=== PATIENT | male | born 1990 | race Two or more races ===

== ENCOUNTER 2020-05-30 08:19 | Emergency (ER) | payer SELFPAY ==
[2020-05-30] MEDS ORDERED: NYSTATIN/DEXAMETH/DIPHEN SUSP 120 ML PO ONE (10:25)
[2020-05-30 10:29] LABS: ABSOLUTE EOSINOPHILS # (AUTO) 0.1 10^3/uL (0.0-0.6); ABSOLUTE LYMPHOCYTES (AUTO) 1.8 10^3/uL (0.5-4.7); ABSOLUTE MONOCYTES (AUTO) 0.4 10^3/uL (0.1-1.4); ABSOLUTE NEUT (AUTO) 3.9 10^3/uL (1.7-8.2); BASOPHILS % (AUTO) 0.7 % (0-2); EOSINOPHILS % (AUTO) 1.3 % (0-6); HEMATOCRIT 48.9 % (37.9-51.0); HEMOGLOBIN 17.1 g/dL (13.5-17.0); LYMPHOCYTES % (AUTO) 29.1 % (13-45); MEAN CORPUSCULAR HEMOGLOBIN 30.2 pg (27.0-33.4); MEAN CORPUSCULAR HGB CONC 34.9 g/dL (32.0-36.0); MEAN CORPUSCULAR VOLUME 87 fl (80-97); PLATELET COUNT 288 10^3/uL (150-450); RED BLOOD COUNT 5.65 10^6/uL (4.35-5.55); RED CELL DISTRIBUTION WIDTH 13.3 % (11.5-14.0); SEGMENTED NEUTROPHILS % (AUTO) 62.9 % (42-78); TOTAL CELLS COUNTED % (AUTO) 100 %; WHITE BLOOD COUNT 6.1 10^3/uL (4.0-10.5)
[2020-05-30 10:47] LABS: ALBUMIN 4.9 g/dL (3.5-5.0); ALKALINE PHOSPHATASE 80 U/L (38-126); ANION GAP 8 (5-19); ASPARTATE AMINO TRANSFERASE 22 U/L (17-59); BILIRUBIN,DIRECT 0.2 mg/dL (0.0-0.4); BILIRUBIN,TOTAL 1.1 mg/dL (0.2-1.3); BLOOD UREA NITROGEN 15 mg/dL (7-20); CALCIUM 10.1 mg/dL (8.4-10.2); CARBON DIOXIDE 28 mmol/L (22-30); CHLORIDE 103 mmol/L (98-107); GLUCOSE 106 mg/dL (75-110); POTASSIUM 4.2 mmol/L (3.6-5.0); TOTAL PROTEIN 7.8 g/dL (6.3-8.2)
--- NOTE | 2020-05-30 11:29 | ER Document Report ---
ED ENT - General Chief Complaint: Sore Throat Stated Complaint: SORE THROAT Time Seen by Provider: 05/30/20 09:39 Mode of Arrival: Ambulatory Information source: Patient Notes: Used ophthalmic lens inspector by Meghan HILL Notes: Patient presents with 2 months of mouth pain. He states over the last 2 to 3 days he has had progressive mouth pain where it hurts to eat and drink. He states a burning sensation. It is moderate in intensity. It is worse with eating or drinking and better when he does not. It does radiate throughout his mouth. He states he also has some tooth pain and cavities but this appears to be a different pain. Patient denies any fever or chills. He denies any significant vomiting or diarrhea. - Related Data Allergies/Adverse Reactions: No Known Allergies Allergy (Unverified 05/30/20 10:13) Past Medical History - General Information source: Patient - Social History Smoking Status: Never Smoker Frequency of alcohol use: None Drug Abuse: None Family History: Reviewed & Not Pertinent Review of Systems - Review of Systems Constitutional: denies: Chills, Fever Cardiovascular: denies: Chest pain, Palpitations Respiratory: denies: Cough, Short of breath -: Yes All other systems reviewed and negative Physical Exam - Vital signs Vitals: Temp Pulse Resp BP Pulse Ox 98.7 F 72 16 122/62 100 05/30/20 09:21 05/30/20 09:21 05/30/20 09:21 05/30/20 09:21 05/30/20 09:21 Interpretation: Normal - General General appearance: Appears well, Alert - HEENT Head: Normocephalic, Atraumatic Eyes: Normal Pupils: PERRL Mouth/Lips: Caries - Patient has poor dentition with numerous dental caries. He also has evidence of gingivitis., Other Mucous membranes: Moist Pharynx: Erythema. No: Exudate - Respiratory Respiratory status: No respiratory distress Chest status: Nontender Breath sounds: Normal Chest palpation: Normal - Cardiovascular Rhythm: Regular Heart sounds: Normal auscultation Murmur: No - Abdominal Inspection: Normal Distension: No distension Bowel sounds: Normal Tenderness: Nontender Organomegaly: No organomegaly - Back Back: Normal, Nontender - Extremities General upper extremity: Normal inspection, Nontender, Normal color, Normal ROM, Normal temperature General lower extremity: Normal inspection, Nontender, Normal color, Normal ROM, Normal temperature, Normal weight bearing. No: Abbey's sign - Neurological Neuro grossly intact: Yes Cognition: Normal Orientation: AAOx4 [place] Coma Scale Eye Opening: Spontaneous [place] Coma Scale Verbal: Oriented Werner Coma Scale Motor: Obeys Commands Werner Coma Scale Total: 15 Speech: Normal Motor strength normal: LUE, RUE, LLE, RLE Sensory: Normal - Psychological Associated symptoms: Normal affect, Normal mood - Skin Skin Temperature: Warm Skin Moisture: Dry Skin Color: Normal Course - Vital Signs Vital signs: Temp Pulse Resp BP Pulse Ox 98.7 F 72 16 122/62 100 05/30/20 09:21 05/30/20 09:21 05/30/20 09:21 05/30/20 09:21 05/30/20 09:21 - Laboratory Result Diagrams: 05/30/20 10:11 05/30/20 10:11 Laboratory results interpreted by me: 05/30/20 10:11 RBC 5.65 H Hgb 17.1 H Discharge - Discharge Clinical Impression: Gingivitis, Dental caries Pharyngitis Qualifiers: Pharyngitis/tonsillitis etiology: unspecified etiology Qualified Code(s): J02.9 - Acute pharyngitis, unspecified Condition: Stable Disposition: HOME, SELF-CARE Instructions: Penicillin V K ([facility]), Sore Throat ([facility]) Additional Instructions: Please see a dentist as soon as possible Prescriptions: Penicillin V Potassium [Penicillin Vk 500 mg Tablet] 500 mg PO QID 10 Days #40 tablet Forms: Return to Work Referrals: [facility] [Provider Group] - Follow up in 3-5 days Print Language: Lao
[2020-05-30 11:47] VITALS: BP 118/62
== END 2020-05-30 11:44 | disposition home or self-care (01) ==
LOC: ER 08:19
DX: K05.10 Chronic gingivitis, plaque induced (principal); K02.9 Dental caries, unspecified; J02.9 Acute pharyngitis, unspecified; K08.89 Other specified disorders of teeth and supporting structures
CPT/HCPCS: 99283; 36415; 87070; 87880; 85025; 80053; J3490

== ENCOUNTER 2020-08-02 07:09 | Emergency (ER) | payer SELFPAY ==
[2020-08-02 07:15] VITALS: BP 127/79
[2020-08-02 09:55] LABS: ABSOLUTE EOSINOPHILS # (AUTO) 0.1 10^3/uL (0.0-0.6); ABSOLUTE LYMPHOCYTES (AUTO) 2.1 10^3/uL (0.5-4.7); ABSOLUTE MONOCYTES (AUTO) 0.5 10^3/uL (0.1-1.4); ABSOLUTE NEUT (AUTO) 2.7 10^3/uL (1.7-8.2); BASOPHILS % (AUTO) 0.9 % (0-2); EOSINOPHILS % (AUTO) 2.2 % (0-6); HEMATOCRIT 46.9 % (37.9-51.0); HEMOGLOBIN 16.2 g/dL (13.5-17.0); LYMPHOCYTES % (AUTO) 38.5 % (13-45); MEAN CORPUSCULAR HEMOGLOBIN 30.2 pg (27.0-33.4); MEAN CORPUSCULAR HGB CONC 34.5 g/dL (32.0-36.0); MEAN CORPUSCULAR VOLUME 88 fl (80-97); MONOCYTES % (AUTO) 8.6 % (3-13); PLATELET COUNT 315 10^3/uL (150-450); RED BLOOD COUNT 5.36 10^6/uL (4.35-5.55); RED CELL DISTRIBUTION WIDTH 13.2 % (11.5-14.0); SEGMENTED NEUTROPHILS % (AUTO) 49.8 % (42-78); TOTAL CELLS COUNTED % (AUTO) 100 %; WHITE BLOOD COUNT 5.4 10^3/uL (4.0-10.5)
[2020-08-02 09:57] LABS: APPEARANCE,URINE CLEAR; BILIRUBIN,URINE NEGATIVE (NEGATIVE); COLOR,URINE STRAW; GLUCOSE, URINE NEGATIVE (NEGATIVE); KETONES,URINE NEGATIVE (NEGATIVE); LEUKOCYTE ESTERASE,URINE NEGATIVE (NEGATIVE); NITRITE,URINE NEGATIVE (NEGATIVE); PROTEIN,URINE NEGATIVE (NEGATIVE); URINE SPECIFIC GRAVITY 1.011; UROBILINOGEN,URINE NEGATIVE mg/dL (<2.0)
[2020-08-02 10:21] LABS: ALBUMIN 4.9 g/dL (3.5-5.0); ALKALINE PHOSPHATASE 76 U/L (38-126); ANION GAP 11 (5-19); ASPARTATE AMINO TRANSFERASE 25 U/L (17-59); BILIRUBIN,DIRECT 0.1 mg/dL (0.0-0.4); BILIRUBIN,TOTAL 0.6 mg/dL (0.2-1.3); BLOOD UREA NITROGEN 14 mg/dL (7-20); CALCIUM 10.1 mg/dL (8.4-10.2); CARBON DIOXIDE 28 mmol/L (22-30); CHLORIDE 101 mmol/L (98-107); GLUCOSE 103 mg/dL (75-110); POTASSIUM 4.6 mmol/L (3.6-5.0); TOTAL PROTEIN 8.1 g/dL (6.3-8.2)
[2020-08-02] MEDS ORDERED: METOCLOPRAMIDE HCL ORAL SOLN 10 MG/10 ML UDCUP PO ONE (10:30)
[2020-08-02] MEDS ORDERED: MAG HYDROX/AL HYDROX/SIMETH SUSP 30 ML UDCUP PO ONE (10:30)
[2020-08-02] MEDS ORDERED: LIDOCAINE 2% VISCOUS SOLN 15 ML UDCUP PO ONE (10:30)
--- NOTE | 2020-08-02 10:30 | ER Document Report ---
ED ENT - General Chief Complaint: Sore Throat Stated Complaint: SORE THROAT/ABDOMINAL PAIN/HEADACHE Time Seen by Provider: 08/02/20 10:16 Notes: CHIEF COMPLAINT: Mouth pain, throat pain for months HPI: 29-year-old male presenting for mouth pain and throat pain with a burning sensation that has been ongoing for months. History is obtained from the patient utilizing a spinneret cleaner computer. Chart was also reviewed. Patient states he has had painful tongue, burning sensation in the throat for 2 to 3 months. States that he was seen here 2 months ago for same complaint of the medications he received did help while he was taking them. He indicates he never followed up with the clinic he was referred to. States he has intermittent left-sided abdominal discomfort but has no abdominal pain at this time. Denies change in the discomfort in the throat with eating or drinking. States the throat hurts all the time. He has taken no gnvt-hap-[id number] medications for his symptoms. ROS: See HPI - all other systems were reviewed and are otherwise negative Constitutional: no fever Eyes: no drainage, no blurred vision ENT: no runny nose, + sore throat, positive mouth pain Cardiovascular: no chest pain Resp: no SOB, no cough GI: no vomiting, no diarrhea, no abdominal pain currently : no dysuria Integumentary: no rash Allergy: no hives Musculoskeletal: no extremity pain or swelling Neurological: no numbness/tingling, no weakness MEDICATIONS: I agree with the patient medications as charted by the RN. ALLERGIES: I agree with the allergies as charted by the RN. PAST MEDICAL HISTORY/PAST SURGICAL HISTORY: Reviewed and agree as charted by RN. SOCIAL HISTORY: Reviewed and agree as charted by RN. FAMILY HISTORY: No significant familial comorbid conditions directly related to patient complaint EXAM: Reviewed vital signs as charted by RN. CONSTITUTIONAL: Alert and oriented and responds appropriately to questions. Well-appearing; well-nourished HEAD: Normocephalic; atraumatic EYES: PERRL; Conjunctivae clear, sclerae non-icteric ENT: normal nose; no rhinorrhea; moist mucous membranes; pharynx without lesions noted, no uvula edema or deviation, no tonsillar hypertrophy, phonation normal NECK: Supple without meningismus; non-tender; no cervical lymphadenopathy, no masses CARD: RRR; no murmurs, no clicks, no rubs, no gallops; symmetric distal pulses RESP: Normal chest excursion without splinting or tachypnea; breath sounds clear and equal bilaterally; no wheezes, no rhonchi, no rales, pulse oximetry 98% on room air not hypoxic ABD/GI: Normal bowel sounds; non-distended; soft, non-tender, no rebound, no guarding; no palpable organomegaly or masses. BACK: The back appears normal and is non-tender to palpation, there is no CVA tenderness EXT: Normal ROM in all joints; non-tender to palpation; no cyanosis, no effusions, no edema SKIN: Normal color for age and race; warm; dry; good turgor; no acute lesions noted NEURO: Moves all extremities equally; Motor and sensory function intact PSYCH: The patient's mood and manner are appropriate. Grooming and personal hygiene are appropriate. MDM: 29-year-old male burning sensation to the tongue and throat, differential is large, could be magnesium deficit or vitamin deficiency, could be reflux. He has no abdominal pain on exam. Prior chart was given penicillin and Magic mouthwash which he states helped. We spoke with the patient at length utilizing the aviation technical systems specialist computer. I will give him a GI cocktail here. He has no abdominal pain at this time that would suggest need for further work-up his lab work is otherwise negative for acute findings. I will place him on Protonix and Magic mouthwash and refer him back to the [place] [facility] and also to gastroenterology for further follow-up he verbalizes understanding of the need to call to obtain an appointment for follow-up - Related Data Allergies/Adverse Reactions: No Known Allergies Allergy (Verified 08/02/20 07:59) Past Medical History - Social History Smoking Status: Never Smoker Chew tobacco use (# tins/day): No Frequency of alcohol use: None Drug Abuse: None Family History: Reviewed & Not Pertinent Patient has homicidal ideation: No Physical Exam - Vital signs Vitals: Temp Pulse Resp BP Pulse Ox 98.7 F 65 18 127/79 H 99 08/02/20 07:14 08/02/20 07:14 08/02/20 07:14 08/02/20 07:14 08/02/20 07:14 Course - Vital Signs Vital signs: Temp Pulse Resp BP Pulse Ox 98.7 F 65 18 127/79 H 99 08/02/20 07:14 08/02/20 07:14 08/02/20 07:14 08/02/20 07:14 08/02/20 07:14 - Laboratory Result Diagrams: 08/02/20 09:30 08/02/20 09:30 Discharge - Discharge Clinical Impression: Throat pain in adult Condition: Stable Disposition: HOME, SELF-CARE Additional Instructions: Your lab work today did not show any acute abnormalities. Take the medications as prescribed. It is very important that you follow-up with outpatient clinics for further evaluation. You have been given a referral to a medical clinic and a finished goods inspector please call their offices to obtain an appointment for further evaluation and management. If you develop persistent abdominal pain or fever greater than 101 return for reevaluation Wright anlisis de laboratorio de hoy no mostr ninguna anomala aguda. Phenix los medicamentos segn lo prescrito. Es muy importante que realice un seguimiento con las clnicas ambulatorias para perry evaluacin adicional. Se le caicedo remitido a perry clnica mdica y un gastroenterlogo, llame a donovan oficinas para obtener perry melquiades para perry evaluacin y tratamiento adicionales. Si presenta dolor abdominal persistente o fiebre superior a 101, regrese para perry reevaluacin Prescriptions: Nystatin/Dexameth/Diphen [Magic Mouthwash ([facility] Formula) Susp] 5 ml PO QID #120 ml Pantoprazole Sodium [Protonix [address] Tablet] 20 mg PO DAILY #30 tablet.dr Referrals: MILES HIDALGO MD [ACTIVE STAFF] - Follow up as needed ISABELA HAMMER MD [NO LOCAL MD] - Follow up as needed
== END 2020-08-02 11:08 | disposition home or self-care (01) ==
LOC: ER 07:09
DX: R07.0 Pain in throat (principal); K14.6 Glossodynia; R19.8 Other specified symptoms and signs involving the digestive system and abdomen
CPT/HCPCS: 99283; 36415; 87070; 87880; 83690; 85025; 80053; 81001; J3490